=== PATIENT | male | born 1960 | race Caucasian/White ===

== ENCOUNTER 2018-05-31 16:49 | Inpatient (IN) | payer OTHER, SELFPAY ==
[2018-05-31] VITALS (13 sets, daily range): BP systolic 113–140; BP diastolic 85–105; PULSE 68–147; RESP 13–25; TEMP 36.8–36.9; O2SAT 95–100; BMI 32.1; BMI 32.6; BMI 32.7
--- NOTE | 2018-05-31 17:04 | EKG12_ITS ---
Test Reason : REPEAT Blood Pressure : / mmHG Vent. Rate : 085 BPM Atrial Rate : 357 BPM P-R Int : 000 ms QRS Dur : 092 ms QT Int : 374 ms P-R-T Axes : 000 025 -09 degrees QTc Int : 445 ms Atrial fibrillation Nonspecific ST abnormality Abnormal ECG Confirmed by BLADIMIR MAYA, JOLIE ([id number]), avid editor KALI SYKES ([id number]) on 06/03/2018 1:08:17 PM Referred By: Karlos Wade Confirmed By:JOLIE GARRISON MD
--- NOTE | 2018-05-31 17:06 | ED.VISSUMM ---
- ER Visit Summary Date of Service: 05/31/18 Chief Complaint: Fast heart rate History of Present Illness: The patient is a 58 M who has no medical complaints, his noticed his heart rate being fast. No fever chills no chest pain or shortness of breath. He does not feel the palpitations. Physical Examination: Not appear in acute distress. Moist mucous membranes, no obvious facial deformity No C-spine tenderness supple neck. Regular rhythm with tachycardia Clear lungs bilaterally speaking in full sentences without any obvious respiratory distress Abdomen soft and nontender no guarding or rebound Moves all extremities without any difficulty or pain. Skin does not show any obvious rashes or lesions, no trauma. Alert oriented ?3 with no gross focal deficit Emergency Department Course and Treatment: Patient was given 3 doses of Cardizem, after which she was started on a drip finally his heart rate is now in the 80s, he has a flutter with variable block as well as atrial fibrillation, this is intermittent. He has not converted. He will be anticoagulated and admitted to the hospital for further workup. Admit to the hospital Impression: Atrial flutter Atrial fibrillation This note was generated with [employer] dictation software. It may contain incorrect words, spelling, and punctuation that were not noted in review of the chart prior to signing ED Disposition - Plan for ED Patient: Chief Complaint: Palpitations Referrals: Jani Burden, APRIL-C [Primary Care Provider] -
[2018-05-31] MEDS: Aspirin 81 MG TAB.CHEW 324 MG PO (17:12)
[2018-05-31] MEDS: dilTIAZem 25 MG/5 ML Vial 10 MG IV BOLUS (17:12)
[2018-05-31] MEDS: dilTIAZem 25 MG/5 ML Vial 20 MG IV BOLUS ×2 (17:28→17:54)
[2018-05-31 17:40] LABS: Absolute Lymphocyte Count 1.72 X10^3/ul (0.83-4.51); Absolute Neutrophil Count 3.8 X10^3/uL (2.0-7.7); Basophil# 0.04 X10^3/uL; Basophil% 0.6 % (0-1); Eosinophil# 0.17 X10^3/uL; Eosinophils% 2.7 % (0-5); Hematocrit 36.7 % (40-54); Hemoglobin 12.8 g/dl (13.0-16.5); Lymphocyte # 1.72 X10^3/ul (4.0); Lymphocyte % 27.2 % (19-41); Mean Corp Hgb Conc 34.9 g/gl (32-36); Mean Corpuscular Hgb 29.8 pg (27.0-32.0); Mean Corpuscular Volume 85.3 fL (80-94); Mean Platelet Vol. 10.2 fl (6.2-12.0); Monocyte# 0.55 X10^3/uL; Monocyte% 8.7 % (0-10); Neutrophil # 3.82 X10^3/uL (2.7-7.7); Neutrophil % 60.5 % (47-70); Platelet Count 266 K/mm3 (150-450); RBC Distribution Width CV 13.8 % (11.6-14.6); RBC Distribution Width SD 42.2 fl (35.1-43.9); White Blood Count 6.3 K/mm3 (4.4-11.0)
[2018-05-31 17:41] LABS: POSITIVE COUNT NO; POSITIVE DIFFERENTIAL NO; POSITIVE MORPHOLOGY NO
--- NOTE | 2018-05-31 18:01 | ED.RN ---
PT WITH A REDUCTION OF HR ON LAST DOSE OF CARDIZEM. DR. OSMAN INFORMED, WANTS CARDIZEM DRIP INITIATED ACCORDING TO ORDERS. PT TOLERATING WELL. WILL CONTINUE TO MONITOR.
--- NOTE | 2018-05-31 18:07 | EKG12_ITS ---
Test Reason : RHYTHM CHANGE Blood Pressure : / mmHG Vent. Rate : 069 BPM Atrial Rate : 069 BPM P-R Int : 150 ms QRS Dur : 092 ms QT Int : 402 ms P-R-T Axes : 042 019 003 degrees QTc Int : 430 ms Normal sinus rhythm Normal ECG When compared with ECG of 31-MAY-2018 16:51, MANUAL COMPARISON REQUIRED, DATA IS UNCONFIRMED Confirmed by BLADIMIR MAYA, JOLIE ([id number]), art editor KALI SYKES ([id number]) on 06/04/2018 2:00:53 PM Referred By: Karlos Wade Confirmed By:JOLIE GARRISON MD
[2018-05-31 18:17] LABS: Anion Gap 9 (5-15); BUN 16 mg/dL (7-18); Calcium,Total 8.3 mg/dL (8.5-10.1); Chloride 107 mmol/L (98-107); EST Glomerular Filtration Rate 81 mL/min (>60); Est Glom Filt Rate - Afr Amer 98 mL/min (>60); Estimated Creatinine Clearance 78.56 ml/min; Glucose 116 mg/dL (74-106); Potassium 3.8 mmol/L (3.5-5.1); Sodium Level 140 mmol/L (136-145); Thyroid Stim Hormone (TSH) 6.57 uIU/mL (0.358-3.74)
[2018-05-31] MEDS: Enoxaparin 100 MG/ML Syringe SC (18:38)
--- NOTE | 2018-05-31 19:53 | NURSING ---
Called ED laserist, Liz at this time to confirm Pt okay to come to PCU.
--- NOTE | 2018-05-31 20:35 | EKG12_ITS ---
Test Reason : PALPITATIONS Blood Pressure : / mmHG Vent. Rate : 147 BPM Atrial Rate : 294 BPM P-R Int : 000 ms QRS Dur : 096 ms QT Int : 314 ms P-R-T Axes : 246 015 -50 degrees QTc Int : 491 ms Atrial flutter with 2:1 A-V conduction ST & T wave abnormality, consider inferior ischemia Abnormal ECG Confirmed by BLADIMIR MAYA, JOLIE ([id number]), technical editor KALI SYKES ([id number]) on 06/03/2018 1:07:31 PM Referred By: Karlos Wade Confirmed By:JOLIE GARRISON MD
--- NOTE | 2018-05-31 20:44 | PCM.HP.STD ---
Problem List (1) Afib Status: Acute (2) Anemia Status: Acute History of Present Illness Date of Admission: 05/31/18 Chief Complaint: Afib The patient is a 58 year old male w/ h/o afib admitted for afib. He has no complaint but has been feeling fatigue in the past few days. Nothing made the fatigue better or worse. Fatigue improved and he did not want to come in. However, his has been checking his heart rate and has noted that his heart rate is elevated x several days. She was able to convince him to go to the ED for further workup. Past Medical History Allergies Penicillins Allergy (Verified 05/31/18 16:50) Hives Home Medications: Ambulatory Orders Medication Instructions Recorded Ferrous Sulfate 325 mg PO DAILY@0800 07/02/15 Levothyroxine Sodium [Levoxyl] 125 mcg PO DAILY 07/02/15 Tamsulosin HCl [Flomax] 0.4 mg PO DAILY 07/02/15 Multivitamins,Therapeutic 1 tablet PO DAILY 05/31/18 [Multivitamin] Omeprazole [Omeprazole] 40 mg PO DAILY 05/31/18 Lives: Spouse/ Significant Other Smoking Status: Never smoker Alcohol: None Drugs: None - *Family History Maternal History Items: No pertinent history Review of Systems Constitutional: Denies: Chills, Fever, Weight Change Eyes: Denies: Conjunctivae Inflammation, Drainage HEENT: Denies: Head Aches, Sinus Congestion, Sinus Drainage Cardiovascular: Denies: Chest Pain, Palpitations Respiratory: Denies: Cough, Shortness of breath at rest, Sputum production Gastrointestinal: Denies: Abdominal Pain, Nausea, Vomiting Genitourinary: Denies: Dysuria Musculoskeletal: Denies: Joint Pain, Joint Tenderness Skin: Denies: Rash, Wounds Neurological: Denies: Numbness, Tingling, Focal weakness Psychiatric: Denies: Anxiety, Depression, Homicidal Ideations, Suicidal Ideations Hematologic/ Lymphatic: Denies: Easy Bruising, Easy Bleeding VTE Information - Inpt Only VTE Present on Admission: No VTE Mechan Device Prophylaxis: SCD's VTE Pharm Prophylaxis ordered?: Yes Patient Problems: Active and Suspected Problems Afib (Acute) Anemia (Acute) - Physical Exam General: Alert, Oriented x3, Cooperative HEENT: Atraumatic, PERRLA, EOMI, Normocephalic Neck: Supple, No JVD, Negative Carotid Bruits Lungs: Clear to auscultation, Normal air movement Cardiovascular: Regular rate, No murmurs Abdomen: Bowel Sounds Present, Soft, Non Tender Extremities: No edema, Capillary Refill Less than 3 Seconds Skin: No rashes, No breakdown Musculoskeletal: No Tenderness to Palpation of Joints or Extremities Neurological: Cranial nerves II-XII grossly intact Psych/Mental Status: Normal Affect, Appropriate Vital Signs Temp Pulse Resp BP Pulse Ox 98.2 F 75 15 113/87 H 100 05/31/18 20:20 05/31/18 20:20 05/31/18 20:20 05/31/18 20:20 05/31/18 20:20 Oxygen Flow Rate (L/min) 2 Oxygen Delivery Method Nasal Cannula Assessment/Plan All Active Problems Afib (Acute) Anemia (Acute) 58 year old male w/ h/o afib admitted for afib. 1) Afib: He has h/o afib. He went of coumadin and cardizem 3 years ago because his felt those meds were dangerous for him at that time. He took fish oil instead per . He is asymptomatic. He was given 3 bolus of cardizem without affecting the rate. C/w cardizem gtt. Probably can transition to PO cardizem in AM. C/w lovenox Q12H. ECHO pending. Probably can transition to coumadin once ECHO done. 2) Anemia: Probably will need outpt workup. Serial labs. Will consider workup if trending down. 3) Prophylaxis: SCD / lovenox.
[2018-05-31] MEDS: 0.9% Normal Saline 1,000 ML 100 ML IV (22:29)
[2018-06-01] VITALS (26 sets, daily range): BP systolic 90–146; BP diastolic 63–96; PULSE 62–86; RESP 14–19; TEMP 36.6–37.2; O2SAT 94–100
[2018-06-01 04:03] LABS: D-Dimer Quantitative (DVT/PE) < 0.27 FEU/ug/m (0.27-0.49)
[2018-06-01 04:19] LABS: BNP,B-Type NATRIURETIC PEPTIDE 72.6 pg/mL (0-100)
[2018-06-01 04:27] LABS: ALB/GLOB Ratio 1.2 RATIO (0.9-2.4); AST(SGOT) 14 U/L (15-37); Alanine Aminotransfer ALT/SGPT 30 U/L (16-61); Albumin, Serum 3.4 g/dL (3.2-5.0); Alkaline Phosphatase 40 U/L (45-117); Anion Gap 9 (5-15); BUN 13 mg/dL (7-18); BUN/Creat Ratio 16.4 RATIO (10-20); Bilirubin, Direct 0.11 mg/dL (0.00-0.30); Chloride 107 mmol/L (98-107); Cholesterol 117 mg/dL (200); Creatinine, Serum 0.79 mg/dL (0.70-1.30); EST Glomerular Filtration Rate 106 mL/min (>60); Est Glom Filt Rate - Afr Amer 128 mL/min (>60); Estimated Creatinine Clearance 99.44 ml/min; Globulin 2.9 g/dL (2.2-4.2); Glucose 94 mg/dL (74-106); High Density Lipoprotein 33 mg/dL; Potassium 3.7 mmol/L (3.5-5.1); Protein, Total 6.3 g/dL (6.4-8.2); Sodium Level 143 mmol/L (136-145); Triglycerides 92 mg/dL; Very Low Density Lipoprotein 18 mg/dL (5-40)
[2018-06-01] MEDS: Levothyroxine 125 MCG Tablet PO (05:26)
[2018-06-01] MEDS: 0.9% Normal Saline 1,000 ML 100 ML IV ×2 (05:34→18:30)
--- NOTE | 2018-06-01 05:55 | ECHOD_ITS ---
Reason For Study: AFIB Procedure This was a 2D Doppler, Color Flow transthoracic echocardiogram. Exam performed portable in patient room. Left Ventricle Normal LV size. Left ventricular systolic function is normal. The estimated ejection fraction is 55 %. Transmitral and pulmonary venous doppler flow suggestive of impaired relaxation of left ventricle. Stage 1 diastolic dysfunction. No regional wall motion abnormalities noted. Right Ventricle Normal RV size. Normal systolic function. Atria The left atrium is mildly enlarged. The right atrium is mildly enlarged. Tricuspid Valve Normal tricuspid valve. Mild (1+) tricuspid valve insufficiency. Pulmonary artery systolic pressure is 40 mmHg. Aortic Valve Normal aortic valve. Pulmonic Valve Normal pulmonic valve. Mild (1+) pulmonic valve insufficiency. Great Vessels Mildly dilated aortic root. The pulmonary artery is normal size. Normal inferior vena cava. Pericardium/Pleural No pericardial effusion. MMode/2D Measurements & Calculations LVIDd: 5.6 cm IVSd: 0.93 cm Ao root diam: 3.8 cm LVIDs: 4.0 cm LVPWd: 0.98 cm LA dimension: 4.3 cm RVDd: 4.8 cm FS: 28.0 % LAV(MOD-bp): 72.3 ml LVAd ap4: 34.0 cm2 SV(MOD-sp4): 65.7 ml LAV(MOD-bp) Indexed: 33.5 ml/m2 EDV(MOD-sp4): 118.5 ml LAV(MOD-sp2): 74.1 ml EDV(sp4-el): 123.1 ml LAV(MOD-sp4): 69.5 ml LVAs ap4: 19.6 cm2 ESV(MOD-sp4): 52.8 ml ESV(sp4-el): 51.8 ml EF(MOD-sp4): 55.4 % EF(sp4-el): 57.9 % SV(sp4-el): 71.3 ml LA A4 area: 23.1 cm2 RA A4 area: 23.7 cm2 Time Measurements MV dec time: 0.26 sec Doppler Measurements & Calculations MV E max esdras: 72.5 cm/sec Lat Peak E' Esdras: 13.3 cm/sec Med Peak E' Esdras: 7.0 cm/sec MV A max esdras: 89.7 cm/sec E/E' lat: 5.5 E/E' med: 10.3 MV E/A: 0.81 Ao V2 max: 122.1 cm/sec LV V1 max: 99.5 cm/sec PA V2 max: 115.3 cm/sec Ao max P.0 mmHg LV V1 max P.0 mmHg PI end-d esdras: 133.8 cm/sec TR max esdras: 298.9 cm/sec TR max P.7 mmHg Interpretation Summary Normal LV size. Left ventricular systolic function is normal. The estimated ejection fraction is 55 %. Transmitral and pulmonary venous doppler flow suggestive of impaired relaxation of left ventricle Stage 1 diastolic dysfunction. Mildly dilated aortic root. Ordering Physician: Karlos Wade Referring Physician: No Referring Physician Selected> Performed By: Leona Hooks, CHAZ, RVT
[2018-06-01] MEDS: Tamsulosin HCl 0.4 MG Capsule PO (08:20)
[2018-06-01] MEDS: Enoxaparin 100 MG/ML Syringe SC (08:20)
[2018-06-01] MEDS: Ferrous Sulfate 325 MG Tablet PO ×2 (08:20→17:51)
[2018-06-01] MEDS: Aspirin 81 MG TAB.CHEW PO (08:20)
[2018-06-01] MEDS: Pantoprazole Sodium 40 MG Tablet PO (08:21)
--- NOTE | 2018-06-01 16:51 | PCM.PN.HOSP ---
Patient Problems: Active and Suspected Problems Afib (Acute) Anemia (Acute) Subjective: The patient has history of A. fib with last admission in June 2015 for A. fib with RVR. Prior to that he was told that he has A. fib but he avoids physician/hospitals. Patient is not on blood thinner. Patient was admitted with feeling fatigued and generalized weakness and found to be in A. fib with RVR in ER. His heart rate was was 147 when he came to ER and when Cardizem drip was discontinued inter com servicer it swing back in 120s 130 as per the nursing staff. Patient was put on the Cardizem drip. Patient denies A. fib related symptoms including palpitation, chest pressure/pain/flutter waves, near syncope or syncope. Vitals/I&O's: Vital Signs Temp Pulse Resp BP Pulse Ox 97.9 F 69 16 146/84 H 97 06/01/18 16:00 06/01/18 16:00 06/01/18 16:00 06/01/18 16:00 06/01/18 16:00 Oxygen Flow Rate (L/min) 2 Oxygen Delivery Method Room Air Weight: 221 lb 5.506 oz Body Mass Index (BMI) 32.6 Intake and Output for Last 24 Hours 05/30/18 05/31/18 06/01/18 23:59 23:59 23:59 Intake Total 3087 / 3087 Output Total 1950 / 1950 Balance 1137 / 1137 General: Alert, Oriented x3, Cooperative HEENT: Atraumatic, PERRLA, EOMI, Normocephalic Neck: Supple, No JVD, Negative Carotid Bruits Lungs: Clear to auscultation, Normal air movement Cardiovascular: Regular rate, Regular Rhythm, Normal S1, Normal S2, No murmurs Abdomen: Bowel Sounds Present, Soft, Non Tender, Non-Distended Extremities: No edema, Capillary Refill Less than 3 Seconds Skin: No rashes, No breakdown Musculoskeletal: No Tenderness to Palpation of Joints or Extremities Neurological: Cranial nerves II-XII grossly intact, Neuro grossly intact Psych/Mental Status: Normal Affect, Appropriate Laboratory Results 05/31/18 22:07: Troponin I < 0.015 06/01/18 00:20: Troponin I 0.016 06/01/18 03:38: D-Dimer Quant (PE/DVT) < 0.27 L 06/01/18 03:38: Sodium 143, Potassium 3.7, Chloride 107, Carbon Dioxide 27.0, Anion Gap 9, BUN 13, Creatinine 0.79, Estim Creat Clear Calc 99.44, Est GFR (MDRD) Af Amer 128, Est GFR (MDRD) Non-Af 106, BUN/Creatinine Ratio 16.4, Glucose 94, Calcium 8.0 L, Total Bilirubin 0.50, Direct Bilirubin 0.11, AST 14 L, ALT 30, Alkaline Phosphatase 40 L, Total Protein 6.3 L, Albumin 3.4, Globulin 2.9, Albumin/Globulin Ratio 1.2, Triglycerides 92, Cholesterol 117, LDL Cholesterol 66, VLDL Cholesterol 18, HDL Cholesterol 33 L 06/01/18 03:38: B-Natriuretic Peptide 72.6 06/01/18 03:38: Troponin I < 0.015 Current Medications Apixaban (Eliquis) 10 mg PO BID [facility] Aspirin (Aspirin, Baby) 81 mg PO DAILY@0800 [facility] Last Admin: 06/01/18 08:20 Dose: 81 mg Diltiazem HCl (Cardizem Cd) 240 mg PO DAILY [facility] Ferrous Sulfate (Ferrous Sulfate) 325 mg PO DAILY@0800 [facility] Last Admin: 06/01/18 08:20 Dose: 325 mg Sodium Chloride () 1,000 mls @ 100 mls/hr IV .Q10H [facility] Last Admin: 06/01/18 05:34 Dose: 100 mls/hr Diltiazem HCl 125 mg/ Dextrose 125 mls @ 5 mls/hr IV .Q25H [facility] PRN Reason: 5 MG/HR Levothyroxine Sodium (Synthroid) 125 mcg PO DAILY@0600 [facility] Last Admin: 06/01/18 05:26 Dose: 125 mcg Metoprolol Tartrate (Lopressor (Beta Lainey)) 25 mg PO BID [facility] Morphine Sulfate () 1 - 2 mg IV Q4H PRN PRN PRN Reason: Moderate Pain (pain scale 4-5) Multivitamins (Multivitamin) 1 tablet PO DAILY [facility] Ondansetron HCl (Zofran) 4 mg IV Q8H PRN PRN PRN Reason: Nausea Pantoprazole Sodium (Protonix) 40 mg PO DAILY [facility] Last Admin: 06/01/18 08:21 Dose: 40 mg Sodium Chloride () 5 - 30 ml IV UD PRN PRN Reason: SALINE FLUSH Tamsulosin HCl (Flomax) 0.4 mg PO DAILY [facility] Last Admin: 06/01/18 08:20 Dose: 0.4 mg Medical Necessity - Tobacco Use Smoking Status: Never smoker Assessment/Plan All Active Problems Afib (Acute) Anemia (Acute) This is a 58-year-old gentleman with history of PA. fib was admitted with generalized weakness since turned out to be due to A. fib with RVR. 2D echo has been ordered. Patient converted to normal sinus rhythm on Cardizem drip but when upright to taper down, swing back to tachycardia.Patient denies A. fib related symptoms including palpitation, chest pressure/pain/flutter waves, near syncope or syncope. 1 Paroxysmal A. fib with RVR: On phototypesetting equipment monitor, patient is converted to normal sinus rhythm. Heart rate is controlled but on Cardizem 5 mg/h. Started on metoprolol 25 mg p.o. twice daily and Cardizem CD 240 mg daily, first dose now and then slowly taper off Cardizem drip with overlap of about 2-3 hours. Titrate metoprolol and Cardizem CD as per the heart rate. Patient is on Lovenox and switched to Eliquis. Currently patient in normal sinus rhythm but in case if he flips into A. fib, will need cardioversion after 3 weeks on anticoagulation and possible KETURAH. 2D echo tomorrow morning. Serial troponins are negative. Fasting profile shows HDL 33. Can discontinue baby aspirin 2. Borderline anemia probably iron and since anemia: Hemoglobin is 12.8 g percent. MCV 85. Ferrous sulfate 325 mg twice daily. 3. Hypothyroidism: TSH slightly elevated at 4.29, and 6.57. Check free T4 and adjust thyroxine accordingly. Other comorbidities possible BPH, GERD and hypothyroidism: Patient is on omeprazole, Flomax, levothyroxine and continued. DVT prophylaxis: On apixaban Code Visit Inpatient E&M: 80382 [facility] [place] Hosp L3
[2018-06-01 17:43] LABS: Anion Gap 6 (5-15); BUN 12 mg/dL (7-18); BUN/Creat Ratio 13.2 RATIO (10-20); Calcium,Total 8.4 mg/dL (8.5-10.1); Chloride 107 mmol/L (98-107); Creatinine, Serum 0.91 mg/dL (0.70-1.30); EST Glomerular Filtration Rate 91 mL/min (>60); Est Glom Filt Rate - Afr Amer 110 mL/min (>60); Estimated Creatinine Clearance 86.32 ml/min; Glucose 96 mg/dL (74-106); Sodium Level 141 mmol/L (136-145)
[2018-06-01] MEDS: Metoprolol Tartrate 25 MG Tablet PO (17:51)
[2018-06-01] MEDS: dilTIAZem CD 240 MG Capsule PO (17:51)
[2018-06-01] MEDS: APIXABAN 5 MG TABLET 10 MG PO (21:37)
[2018-06-02] VITALS (9 sets, daily range): BP systolic 98–118; BP diastolic 66–85; PULSE 55–80; RESP 16–18; TEMP 36–36.7; O2SAT 95–96
[2018-06-02] MEDS: Levothyroxine 125 MCG Tablet PO (03:34)
[2018-06-02 06:01] LABS: Absolute Lymphocyte Count 1.35 X10^3/ul (0.83-4.51); Absolute Neutrophil Count 3.5 X10^3/uL (2.0-7.7); Basophil# 0.03 X10^3/uL; Basophil% 0.5 % (0-1); Eosinophil# 0.18 X10^3/uL; Eosinophils% 3.3 % (0-5); Hemoglobin 12.3 g/dl (13.0-16.5); Lymphocyte # 1.35 X10^3/ul (4.0); Lymphocyte % 24.5 % (19-41); Mean Corp Hgb Conc 34.2 g/gl (32-36); Mean Corpuscular Volume 87.8 fL (80-94); Monocyte# 0.45 X10^3/uL; Monocyte% 8.2 % (0-10); Neutrophil # 3.48 X10^3/uL (2.7-7.7); Neutrophil % 63.1 % (47-70); Platelet Count 244 K/mm3 (150-450); RBC Distribution Width SD 43.8 fl (35.1-43.9); White Blood Count 5.5 K/mm3 (4.4-11.0)
[2018-06-02 06:17] LABS: T4 Free Direct 1.22 ng/dL (0.76-1.46)
[2018-06-02 06:29] LABS: POSITIVE COUNT NO; POSITIVE DIFFERENTIAL NO; POSITIVE MORPHOLOGY NO
[2018-06-02] MEDS: Multivitamins,Therapeutic Tablet 1 TABLET PO (08:43)
[2018-06-02] MEDS: APIXABAN 5 MG TABLET 10 MG PO (08:43)
[2018-06-02] MEDS: Ferrous Sulfate 325 MG Tablet PO (08:43)
[2018-06-02] MEDS: Metoprolol Tartrate 25 MG Tablet PO (08:44)
[2018-06-02] MEDS: Pantoprazole Sodium 40 MG Tablet PO (08:44)
[2018-06-02] MEDS: Tamsulosin HCl 0.4 MG Capsule PO (08:44)
[2018-06-02] MEDS: dilTIAZem CD 240 MG Capsule PO (08:44)
--- NOTE | 2018-06-02 10:18 | PCM.DC ---
- Discharge Diagnoses Current Active Problems: Current Active and Chronic Problems Afib (Acute) Anemia (Acute) You will use the following diet at home:: No restrictions Instructions: Apixaban Oral tablet, Blood Thinner Pills: Your Guide to Using them Safely Allergies/Adverse Reactions: Allergies Penicillins Allergy (Verified 05/31/18 16:50) Hives Medications to take at Discharge Ferrous Sulfate 325 mg PO DAILY@0800 07/02/15 Levothyroxine Sodium [Levoxyl] 125 mcg PO DAILY 07/02/15 Tamsulosin HCl [Flomax] 0.4 mg PO DAILY 07/02/15 Multivitamins,Therapeutic [Multivitamin] 1 tablet PO DAILY 05/31/18 Omeprazole 40 mg PO DAILY 05/31/18 Apixaban [Eliquis] 5 mg PO BID #60 tab 06/02/18 Diltiazem CD [Cardizem CD] 240 mg PO DAILY #60 cap 06/02/18 Metoprolol Tartrate [Lopressor (beta mary)] 25 mg PO BID #120 tab 06/02/18 The following prescriptions were given: Apixaban [Eliquis] 5 mg PO BID #60 tab Diltiazem CD [Cardizem CD] 240 mg PO DAILY #60 cap Metoprolol Tartrate [Lopressor (beta mary)] 25 mg PO BID #120 tab Primary Care Physician: Jani Burden NP-C [Primary Care Provider] - Please follow up with your Primary Care Physician in: in 3-5 days Test Results: Test results from this visit will be discussed in further detail at your follow-up appointment, if applicable. Proposed Discharge Date: 06/02/18
--- NOTE | 2018-06-02 10:23 | PCM.DC.SUM ---
Discharge Date and Diagnosis - Problem List Patient Problems: Active and Suspected Problems Afib (Acute) Anemia (Acute) Date of Admission: 05/31/18 Date of Discharge: 06/02/18 - Primary Discharge Diagnosis Active and Suspected Problems Afib (Acute) Anemia (Acute) Hospital Course and Treatment Imaging Results: Clinical Impression(s) from Imaging Studies Chest X-Ray 05/31/18 17:04 IMPRESSION: No active or acute cardiopulmonary disease. Electronically Signed: Andrzej Saucedo MD at 18:09 EDT , Service support , Chest X-Ray 06/01/18 05:55 IMPRESSION: No acute cardiopulmonary disease. Electronically Signed: Yogesh Mack DO at 10:43 EDT Tel , Service support , Summary of Care Provided: Patient is a 58-year-old gentleman with history of paroxysmal A. fib who presented with progressive generalized weakness found to have A. fib with RVR admitted to monitored bed managed with Cardizem later switched to p.o. Cardizem as well as beta blockers 1. Paroxysmal A. fib. Rate controlled with Cardizem as well as beta blockers. Patient underwent subsequent evaluation with serial cardiac enzymes which came back negative also had a 2D echo performed prior to discharge prescription was written for Eliquis and is discharged 2. Hypothyroidism-patient is on levothyroxine home dose continued 3. BPH on Flomax 4. GERD on PPI Discharge Diet: No Restrictions Home Medications: Medications to take at Discharge Ferrous Sulfate 325 mg PO DAILY@0800 07/02/15 Levothyroxine Sodium [Levoxyl] 125 mcg PO DAILY 07/02/15 Tamsulosin HCl [Flomax] 0.4 mg PO DAILY 07/02/15 Multivitamins,Therapeutic [Multivitamin] 1 tablet PO DAILY 05/31/18 Omeprazole 40 mg PO DAILY 05/31/18 Apixaban [Eliquis] 5 mg PO BID #60 tab 06/02/18 Diltiazem CD [Cardizem CD] 240 mg PO DAILY #60 cap 06/02/18 Metoprolol Tartrate [Lopressor (beta mary)] 25 mg PO BID #120 tab 06/02/18 Following Prescrptions Were Given to Patient: Apixaban [Eliquis] 5 mg PO BID #60 tab Diltiazem CD [Cardizem CD] 240 mg PO DAILY #60 cap Metoprolol Tartrate [Lopressor (beta mary)] 25 mg PO BID #120 tab Primary Care Physician: Jani Burden, APRIL-C [Primary Care Provider] - Please follow up with your Primary Care Physician in: in 3-5 days Patient Instructions: Apixaban Oral tablet, Blood Thinner Pills: Your Guide to Using them Safely Disposition: Home Minutes spent on discharge:: 35 Medical Necessity - Tobacco Use Smoking Status: Never smoker Meaningful Use Info Meaningful Use Diagnoses (Choose all that apply): None applicable Code Visit Inpatient E&M: 10932 Disch Hosp
--- NOTE | 2018-06-02 11:58 | CASEMGMT ---
RN CM Note. Intro role of CM to patient and his . Pt is independent, no dc needs identified. States they use transportation services to f/u with PCP. Discussed Eliquis as pt does not have prescription insurance. Eliquis saving card given-first 30 day supply will have no cost. Also explained if medication is cost prohibitive after first month, to f/u with PCP prior to 30 days and discuss options with PCP. Pt's states that cost of being on Coumadin was low, however the f/u with physicians and labwork was more costly, so they may continue with Eliquis if possible. Heather TALBERTN RN ACM
== END 2018-06-02 15:10 | disposition home or self-care (01) | DRG 310 ==
LOC: ED 17:08 → PCU 19:47
PROVIDERS: Internal Medicine; Admitting Provider Internal Medicine; Emergency Provider Emergency Medicine; Family Provider Nurse Practitioner Family; PCP Nurse Practitioner Family; Visit Provider Internal Medicine
DX: I48.0 Paroxysmal atrial fibrillation (principal); D64.9 Anemia, unspecified; E03.9 Hypothyroidism, unspecified; N40.0 Benign prostatic hyperplasia without lower urinary tract symptoms; K21.9 Gastro-esophageal reflux disease without esophagitis; I48.92 Unspecified atrial flutter
CPT/HCPCS: 36415; 71045; 71046; 80048; 80053; 80061; 80076; 83880; 84439; 84443; 84484; 85025; 85379; 93005; 93306; 99284; J7030; A4216

== ENCOUNTER → 2021-06-14 14:06 | Outpatient (CLI) | payer OTHER, SELFPAY ==
--- NOTE | 2021-06-14 14:20 | RAD_ITS ---
STUDY: X-RAY CHEST REASON FOR EXAM: Male, 61 years old. Cough TECHNIQUE: PA and lateral views of the chest. COMPARISON: Comparison is made with prior study dated 06/01/2019. FINDINGS: Hyperinflation. The lungs are clear. There is no demonstrated pleural abnormality. There is borderline cardiomegaly. Normal mediastinum and lia. Normal visualized pulmonary arteries. Normal visualized aortic arch and descending thoracic aorta. There is demineralization of the osseous structures. Normal visualized ribs, clavicles, and shoulders. There is no demonstrated abnormality of the visualized soft tissue structures of the upper abdomen. RAD/Chest PA and Lateral IMPRESSION: Hyperinflation. The lungs are clear. Electronically Signed: Bereket Melendez MD at 15:50 EDT , Service support ,
== END ==
PROVIDERS: PCP Nurse Practitioner Family; Referring Provider Physician Assistant Medical; Visit Provider Physician Assistant Medical
DX: R05 Cough (principal)
CPT/HCPCS: 71046

== ENCOUNTER 2021-07-12 05:22 | Day surgery (SDC) | payer SELFPAY, OTHER ==
--- NOTE | 2021-07-11 09:34 | EKG12_ITS ---
Test Reason : PREOP Blood Pressure : / mmHG Vent. Rate : 116 BPM Atrial Rate : 102 BPM P-R Int : 000 ms QRS Dur : 098 ms QT Int : 286 ms P-R-T Axes : 000 037 -06 degrees QTc Int : 397 ms Atrial fibrillation Abnormal ECG Confirmed by BLADIMIR MAYA, JOLIE ([id number]), managing editor WHITLEY MINAYA ([id number]) on 07/11/2021 2:04:26 PM Referred By: Milton Leger Confirmed By:JOLIE GARRISON MD
[2021-07-11 10:54] LABS: Hematocrit 42.3 % (40-54); Mean Corp Hgb Conc 33.1 g/dL (32-36); Mean Corpuscular Hgb 29.7 pg (27.0-32.0); Mean Corpuscular Volume 89.8 fL (80-94); Mean Platelet Vol. 9.6 fl (6.2-12.0); Platelet Count 282 K/mm3 (150-450); RBC Distribution Width CV 13.7 % (11.6-14.6); RBC Distribution Width SD 45.2 fl (35.1-43.9); Red Blood Count 4.71 M/mm3 (4.6-6.2)
[2021-07-11 11:21] LABS: Anion Gap 7 (5-15); BUN 17 mg/dL (7-18); BUN/Creat Ratio 17.1 RATIO (10-20); Calcium,Total 9.2 mg/dL (8.5-10.1); Chloride 102 mmol/L (98-107); Creatinine, Serum 0.99 mg/dL (0.70-1.30); EST Glomerular Filtration Rate 81 mL/min (>60); Est Glom Filt Rate - Afr Amer 98 mL/min (>60); Glucose 100 mg/dL (74-106); Potassium 4.4 mmol/L (3.5-5.1); Sodium Level 140 mmol/L (136-145)
[2021-07-11 11:28] LABS: Thyroid Stim Hormone (TSH) 2.66 uIU/mL (0.358-3.74)
[2021-07-12] VITALS (12 sets, daily range): BP systolic 82–136; BP diastolic 63–85; PULSE 60–95; RESP 10–18; TEMP 35.8–36.4; O2SAT 6–100; BMI 31.8
[2021-07-12] MEDS: Lactated Ringers 1,000 ML 100 ML IV ×2 (05:50→13:09)
--- NOTE | 2021-07-12 06:49 | HP.PCM_ITS ---
History and Physical Date of Admission: 07/12/21 Visit Reasons: INGUINAL HERNIA Chief Complaint: right inguinal hernia Teletypewriter Installer Required: No Is patient in pain?: Yes (right groin) Allergies Penicillins Allergy (Verified 06/02/21 13:08) Hives Medications ferrous sulfate 325 mg PO DAILY@0800 07/02/15 [History Confirmed 06/02/21] tamsulosin 0.4 mg PO DAILY 07/02/15 [History Confirmed 06/02/21] multivitamin with folic acid 1 tab PO DAILY 05/31/18 [History Confirmed 06/02/21] diltiazem HCl 240 mg PO DAILY #60 cap 06/02/18 [Rx Confirmed 06/02/21] 7-oxo-dhea, micronized (bulk) 100 % powder % MISCELLANEOUS 10/27/19 [History Confirmed 06/02/21] levothyroxine 175 mcg tablet 200 mcg PO DAILY tab 04/26/20 [History Confirmed 06/02/21] tamsulosin 0.4 mg capsule 0.4 mg PO DAILY #14 cap 06/02/21 [Rx Confirmed 06/02/21] [facility] Medical History (Updated 06/02/21 @ 13:[address] Milton Leger MD) Atrial flutter with rapid ventricular response (05/31/18) BPH without obstruction/lower urinary tract symptoms Dilated aortic root GERD (gastroesophageal reflux disease) Hypothyroidism Iron deficiency anemia Obesity Paroxysmal atrial fibrillation Paroxysmal atrial flutter Persistent atrial fibrillation Secondary pulmonary arterial hypertension Spinal stenosis Surgical History History of foot surgery Family History Mother Hypertension Father Cancer Social History Smoking Status: Never smoker alcohol intake: never HPI HPI HPI: ANANTH SYKES, is a 61 M who presents to the office today for surgical consultation regarding a right inguinal hernia. The patient is referred by Kiko Chandler and a written copy of my surgical consult and recommendations will return to him. Report suggested a previous inguinal hernia repair. It is of note that the patient had atrial fibrillation with rapid ventricular response May 2018. His most recent cardiology visit with Dr. Bart Wyatt was December 08, 2020. The patient was noted to have chronic atrial fibrillation at that time with a controlled ventricular response. This is controlled with diltiazem. He is on a natural medication for anticoagulation Patient thought that he had a previous right inguinal hernia repair. It appears evident that actually remotely in [address] An[address]am Sykes in [facility] he had a left inguinal hernia repair done through an open approach. The patient does not think he had mesh. About 4 months ago he was lifting wood. He thinks that is what caused his right inguinal hernia. He states he cannot reduce it. However when I ask him it is evident that it spontaneously reduces itself every morning. He has nocturia 3 times nightly. I offered starting him on Flomax. They seemed not to be aware that he was actually already on Flomax. They do not think that they have had COVID-19. They have not been vaccinated. ROS General General: No weight change, appetite, fatigue, colon cancer, breast cancer or weakness HEENT HEENT: No difficulty swallowing, eye injury, eye surgery, swollen glands or hoarseness Endo Endocrine: No thyroid disease, diabetes mellitus, thyroid cancer, Hair loss, heat intolerance or cold intolerance Skin Skin: No rash or changing moles Breast Breast: No left breast lump, right breast lump, nipple discharge, breast pain, abnormal mammogram, abnormal US or breast enlargement Musc Musculoskeletal: Yes back problems; No arthritis, rheumatoid arthritis, gout or joint pain Cardio Cardiovascular: Yes atrial fibrillation; No murmur, pacemaker, heart disease, high blood pressure, heart attack, heart stent, palpitations, shortness of breat with exertion or chest pain Psych Psychiatric: No depression, anxiety or hearing voices Resp Respiratory: Yes shortness of breath, No sleep apnea, No cough, No COPD, No asthma, No emphysema and No wheezing Gastro Gastrointestinal: Yes abdominal pain, No nausea or vomiting, No diarrhea, No constipation, No blood in stool, Yes acid reflux, No hemorrhoids, No ulcers, No gallbladder problem and No black,tarry stools Pradeep Hematologic: No blood thinners, No blood disorders, No bleeding, No anemia and No blood clots Neuro Neurologic: No system reviewed and no additional complaints, except as documented, No as per HPI, No abnormal gait, No abnormal hearing, No abnormal movements, No abnormal speech, No behavioral changes, No burning sensations, No confusion, No convulsions, No disequilibrium, No dizziness, No localized weakness, No frequent falls, No headache(s), No lack of coordination, No loss of vision, No memory loss, No numbness, No other visual disturbances, No radicular pain, No restless legs, No sensory deficit, No syncope, No tingling, No tremor(s), No weakness and No other Exam Const General: cooperative, comfortable and no acute distress Other: Memory seems poor regarding his cardiac events [facility] Head: normal to inspection Eyes General: appearance normal, both eyes and all related structures Chest Chest palpation & inspection: normal inspection of the chest Resp Effort & Inspection: normal respiratory effort Auscultation: clear to auscultation bilaterally Cardio Other: Irregular GI Palpation: soft and no hepatosplenomegaly Other: Well-healed oblique left groin incision solid and intact Obvious sizable right inguinal hernia. Reducible. Testicles are descended without mass Musc Cervical Spine: normal cervical lordosis Neuro General: patient alert and patient awake Extrem General: no calf tenderness Psych Appearance: grossly normal COVID (Procedure Consent) Procedure Criteria Procedure Criteria: Yes Elective The surgeon/proceduralist and patient have discussed in detail the risk of exposure to and/or potential harm posed by the COVID-19 virus with having a surgery/procedure at this time versus the risk of delaying the surgery/procedure. It is not possible to know either the risk of delaying the surgery or procedure or chance of getting an infection with perfect accuracy, but a joint decision was made between the patient and the surgeon/proceduralist to proceed at this time with the scheduled surgery/procedure as indicated on the consent form. Assessment and Plan Assessment and Plan (1) Persistent atrial fibrillation: Status: Chronic (2) Inguinal hernia of right side without obstruction or gangrene: Status: Acute Plan Details Other Medications: New: tamsulosin (Flomax) 0.4 mg PO DAILY 14 caps 0RF Additional Comments: Patient has symptomatic right inguinal hernia. I propose for him a laparoscopic right inguinal herniorrhaphy with mesh. He is aware of the technique, benefit, risk and alternatives Complicating features include his atrial fibrillation. Because of the cost of chronic anticoagulation under the direction of And the patient's chiropractor they elected to pursue natural blood thinners he is not aware that he has had any strokes. By report his rate has been reasonably controlled. His states that his rate only becomes a problem when he otherwise becomes dehydrated. The patient has nocturia x3 seemingly despite the tamsulosin therapy. He is on tamsulosin 0.4 mg nightly. We will increase that to tamsulosin 0.4 mg twice daily in preparation for the surgery. The patient is aware that he could require Horowitz catheterization with discharged home with a catheter. He is aware of the risks benefits complications of bleeding as well as emboli and stroke. We will recommend earlier mobilization. The patient has an upcoming vacation and upcoming wedding. We will schedule surgery when it is possible to perform a COVID-19 check preoperatively. I appreciate the opportunity of assisting with her surgical care. I have assisted his with a herniorrhaphy and she performed very well with that. Copy: Gabriel Burden and Dr. Bart Leger M.D., F.A.C.S. I have re-examined the patient. There are no clinical changes since date of exam.
--- NOTE | 2021-07-12 06:52 | EX.PCM.DISCH ---
Discharge Instructions Procedure General Surgery Diet Discharge Diet: Light diet - advance as tolerated (if you have questions about your diet instructions, please talk to you doctor.) Activity Discharge Activity: May Not Drive (for 3-5 days or while taking narcotic pain medicine.) May shower in (days): 1 Lifting Restrictions: 10 pounds Dressing / Incision Call your doctor if your incision/area has: Continuous Slow Oozing, Sudden Increased Bleeding, Increased Pain/ Swelling, Increased Redness and Foul Smelling Discharge Call your doctor if you observe: Fever of 101 or Higher Suture Line Care: Avoid Pulling/Pushing and Avoid Pinching/Bending Additional Dressing/Incision Instructions:: Change or remove dressing in 4 days. Leave steri-strips in place for 1 week. Follow Up Care Please Follow Up With: Milton Leger MD When: Call [phone] to make an appointment to be seen in about 10 days. Test Results: Test results from this visit will be discussed in further detail at your follow-up appointment, if applicable. Discharge Plan Admission Attending Provider: Milton Leger Primary Care Provider: Jani Burden CORRECTIVE THERAPIST Discharge Orders/Prescriptions Prescriptions: No Action levothyroxine 175 mcg tablet 200 mcg PO DAILY RF: 0 omega-3 fatty acids [Fish Oil Concentrate] 1,000 mg capsule 1,000 mg PO TID RF: 0 artery care 2 cap PO TID RF: 0 cataplex g 2 cap PO TID RF: 0 selium 1 cap PO DAILY RF: 0 chronic 1 tab PO DAILY RF: 0 esomeprazole magnesium 40 mg capsule,delayed release(DR/EC) 40 ea PO QHS RF: 0 ferrous sulfate 325 MG tablet 325 mg PO DAILY@0800 RF: 0 diltiazem HCl 240 MG capsule 240 mg PO DAILY Qty: 60 RF: 0 Artery C 2 tab PO/SL TID RF: 0 tamsulosin [Flomax] 0.4 mg capsule 0.4 mg PO BID RF: 0
[2021-07-12] MEDS: dilTIAZem CD 240 MG Capsule PO (07:05)
--- NOTE | 2021-07-12 08:24 | OP.PCM_ITS ---
Problems Associated Problem List Diagnoses (1) Inguinal hernia of right side without obstruction or gangrene: Report of Operation Date of Procedure: 07/12/21 Pre-Operative Diagnosis: Symptomatic indirect right inguinal hernia Post-Operative Diagnosis: Same Surgery/Procedure Performed:: Laparoscopic right inguinal hernia with Bard 3D max extra-large mesh Lot number [id number], reference #[id number], expiry date 10/20/2025 Description of Surgical Findings:: Timeout and informed consent was obtained. 61-year-old gentleman was taken to the operating place upon the table underwent general endotracheal intubation anesthesia. Clindamycin 900 g given intravenously. The abdomen sterilely prepped and draped. The patient appeared with what was a small abscess on the left lateral abdominal wall so an Ioban drape was used. 0.5% Marcaine was used as local anesthetic. Skin sites were preanesthetized. A vertical infraumbilical incision was created holding sutures of 0 Vicryl placed varies needle inserted saline drop test performed the abdomen was insufflated with CO2 to a pressure of 10 mmHg pressure. 10 mm trocar inserted. 10 mm laparoscope inserted. No evidence of any trocar injuries. The left groin showed some signs of some suture material from the remote left inguinal hernia repair. The right side had a sizable indirect inguinal hernia. 5 mm ports were placed in the right and left lower quadrant. The peritoneum superior lateral to the internal ring was incised and carried medially. Blunt dissection was used to completely invert of the very large right inguinal sac. It was completely inverted. Direct indirect femoral artery identified. A extra-large Bard 3D max right-sided mesh was placed. Very nicely cover the defect area. It was secured superiorly and medially with secure strap. Excellent position was achieved. The peritoneum was approximated to itself with secure strap and Hem-o-edwina clips completely obliterating access to the mesh. The abdomen was allowed to deflate through an antiviral valve. Trochars removed. The fascia at the umbilicus approximated [id number] suture 0 Vicryl. Skin edges approximated opted for Monocryl subdermal stitches. Steri- Strips Telfa OpSite dressings applied. Sponge and instrument and needle counts were reported to the surgeon to be correct. Specimens none. Drains none. Blood loss minimal. The patient was taken to the recovery area in satisfactory addition without apparent complication Milton Leger M.D., F.A.C.S. Surgeon: Milton Leger Type of Anesthesia: General Anesthesiologist: Corey Ballesteros
[2021-07-12] MEDS: Bupivacaine Mpf 0.5% 30 ML VIAL (08:25)
== END 2021-07-12 15:16 | disposition home or self-care (01) ==
LOC: SDC 05:24 → AC 05:24
PROVIDERS: Anesthesiology; PCP Nurse Practitioner Family; Referring Provider Surgery; Visit Provider Surgery
PROC: (CPT 49650; principal; 2021-07-12 07:10)
DX: K40.90 Unilateral inguinal hernia, without obstruction or gangrene, not specified as recurrent (principal); I48.19 Other persistent atrial fibrillation; I48.92 Unspecified atrial flutter; I27.21 Secondary pulmonary arterial hypertension; D50.9 Iron deficiency anemia, unspecified; E03.9 Hypothyroidism, unspecified; E66.9 Obesity, unspecified; Z68.31 Body mass index [BMI] 31.0-31.9, adult; Z79.01 Long term (current) use of anticoagulants; Z79.899 Other long term (current) drug therapy; Z20.822 Contact with and (suspected) exposure to COVID-19
CPT/HCPCS: 49650; 36415; 80048; 84443; 85027; 87426; 93005; C9803; J7120; C1781; J2405

== ENCOUNTER → 2022-10-09 | Outpatient (CLI) | payer OTHER, SELFPAY ==
--- NOTE | 2022-10-09 08:00 | PROSBIL_PTH ---
PATIENT: ANANTH SYKES LOC: [facility] U#:[id number] AGE/SX: 62/M ROOM: RE10/09/[address]: Dr. Kevan Molina MD : 1960 BED: DIS: 10/09/2022 SPEC #: [id number] RECD: 10/09/22 16:05 STATUS: NEVIN MARLENY #: [id number] TAMIKO: 10/09/22 08:[address]: Kevan Molina DEPT: SURGICAL PATHOLOGY RECD BY: Jacob Renner ENTERED: 10/10/22 08:45 SP TYPE: PROST BX JUAN DR: Jani Burden, BROMINATION EQUIPMENT OPERATOR-C Tissues: A - PROSTATE RIGHT B - PROSTATE RIGHT C - PROSTATE RIGHT D - PROSTATE LEFT E - PROSTATE LEFT F - PROSTATE LEFT Procedures: PROSTATE BX HEADER OPERATION: Prostate biopsy PRE-OP DIAGNOSIS: Elevated PSA TISSUE SUBMITTED: A - Right apex, B - Right mid, C - Right base, D - Left apex, E - Left mid, F - Left base MICROSCOPIC DIAGNOSIS A. Right prostate, apex, core biopsy: Prostatic tissue, negative for malignancy. B. Right prostate, mid, core biopsy: Prostatic tissue, negative for malignancy. C. Right prostate, base, core biopsy: Prostatic tissue, negative for malignancy. D. Left prostate, apex, core biopsy: Prostatic tissue, negative for malignancy. E. Left prostate, mid, core biopsy: Prostatic tissue, negative for malignancy. F. Left prostate, base, core biopsy: Prostatic tissue, negative for malignancy. SJ:royce 10/11/2022 MICROSCOPIC DESCRIPTION Slides are reviewed. GROSS DESCRIPTION A - Received is one container designated prostate, right apex. The specimen consists of two elongated fragments of light riggs-white soft tissue each measuring 1.5 cm in length and 0.1 cm in diameter. The specimen is totally submitted in one cassette. B - Received is one container designated prostate, right mid. The specimen consists of two elongated fragments of light riggs-white soft tissue each measuring 1 cm in length and 0.1 cm in diameter. The specimen is totally submitted in one cassette. C - Received is one container designated prostate, right base. The specimen consists of two elongated fragments of light riggs-white soft tissue each measuring 2 cm in length and 0.1 cm in diameter. The specimen is totally submitted in one cassette. D - Received is one container designated prostate, left apex. The specimen consists of one elongated fragment of light riggs-white soft tissue measuring 1 cm in length and 0.1 cm in diameter. The specimen is totally submitted in one cassette. E - Received is one container designated prostate, left mid. The specimen consists of two elongated fragments of light riggs-white soft tissue each measuring 1.5 cm in length and 0.1 cm in diameter. The specimen is totally submitted in one cassette. F - Received is one container designated prostate, left base. The specimen consists of two elongated fragments of light riggs-white soft tissue each measuring 1.5 cm in length and 0.1 cm in diameter. The specimen is totally submitted in one cassette. / AM:royce 10/10/2022 TC:5 CPT: 37336 x6
== END | disposition home or self-care (01) ==
PROVIDERS: PCP Nurse Practitioner Family; Referring Provider Urology; Visit Provider Urology
DX: R97.20 Elevated prostate specific antigen [PSA] (principal)
CPT/HCPCS: 88305; G0416

== ENCOUNTER → 2023-01-24 | Outpatient (CLI) | payer OTHER, SELFPAY | END | disposition home or self-care (01) | PROVIDERS: PCP Nurse Practitioner Family; Referring Provider Physician Assistant Medical; Visit Provider Physician Assistant Medical | DX: R55 Syncope and collapse (principal); I48.19 Other persistent atrial fibrillation | CPT/HCPCS: 93225; 93226 ==